=== PATIENT | male | born 1970 | race Caucasian/White ===

== ENCOUNTER 2018-10-26 22:10 | Emergency (ER) | payer OTHER ==
[~2018-10-26] VITALS: Ht 172.7 cm; Wt 81.7 kg
[2018-10-26] MEDS ORDERED: IBUPROFEN 800800 MG PO (22:38)
[2018-10-26] MEDS ORDERED: AMOXICILLIN500 M1 PO (22:38)
[2018-10-26 22:44] VITALS: BP 137/85
== END 2018-10-26 22:45 | disposition home or self-care (01) ==
LOC: M.ERS 22:10
DX: R51 Headache (principal)